=== PATIENT | female | born 1995 | race Caucasian/White ===

== ENCOUNTER 2019-03-17 10:57 | Inpatient (IN) | payer OTHER ==
[~2019-03-17] VITALS: Ht 152.4 cm; Wt 5.0 kg
[2019-03-17] MEDS ORDERED: SYNTHROID50 MCG (11:01)
[2019-03-21] MEDS ORDERED: LOW-OGESTREL-21 EACH PO (07:29)
== END 2019-03-21 09:17 | disposition home or self-care (01) | DRG 812 ==
LOC: ER 10:57 → OB/GYN 20:38 → SURH 21:32 → OB/GYN 22:04
PROVIDERS: ADMIT Obstetrics & Gynecology
PROC: 30233N1 Transfusion of Nonautologous Red Blood Cells into Peripheral Vein, Percutaneous Approach (ICD-10-PCS; principal; 2019-03-17)
PROC: BU46ZZZ Ultrasonography of Uterus (ICD-10-PCS; 2019-03-17)
DX: D64.89 Other specified anemias (principal); N93.8 Other specified abnormal uterine and vaginal bleeding; D50.0 Iron deficiency anemia secondary to blood loss (chronic); N92.0 Excessive and frequent menstruation with regular cycle